=== PATIENT | female | born 1960 | race Caucasian/White ===

== ENCOUNTER 2019-04-15 07:28 | Day surgery (SDC) | payer BC ==
[~2019-04-15] VITALS: Ht 165.1 cm; Wt 86.0 kg
[~2019-04-15 07:28] MED LIST: BENA20TA4 PO
[2019-04-15 09:07] VITALS: Ht 165.1 cm; Wt 86.0 kg
[2019-04-15] MEDS ORDERED: PROPOFOL 60 ML ONE (09:36)
[2019-04-15 09:37] VITALS: BP 147/67; PULSE 68; RESP 15
[2019-04-15] MEDS ORDERED: LIDOCAINE 2% (SDV) 5 ML INJ ONE (09:37)
[2019-04-15 10:36] VITALS: BP 130/55; RESP 38
[2019-04-15] MEDS ORDERED: FENTAnyl 50 MCG/ML VIAL IV PRN (11:30)
[2019-04-15] MEDS ORDERED: ONDANSETRON 4 MG INJ IV PRN (11:30)
== END 2019-04-15 13:34 | disposition home or self-care (01) ==
LOC: GIL 07:28
PROVIDERS: ATTEND Internal Medicine Gastroenterology
DX: K64.8 Other hemorrhoids (principal); D12.5 Benign neoplasm of sigmoid colon; K57.30 Diverticulosis of large intestine without perforation or abscess without bleeding; K21.9 Gastro-esophageal reflux disease without esophagitis; I10 Essential (primary) hypertension
CPT/HCPCS: 43239; 45385; 88305; 88312; Z7610